=== PATIENT | female | born 1925 | race Caucasian/White ===

== ENCOUNTER → 2016-05-22 | Outpatient (CLI) | payer OTHER, BC | LOC: MMPC 11:11 | PROVIDERS: ATTEND Internal Medicine | DX: J01.40 Acute pansinusitis, unspecified (principal) | CPT/HCPCS: 99213; G0463 ==

== ENCOUNTER 2016-06-11 12:03 | Emergency (ER) | payer OTHER, BC ==
[2016-06-11] MEDS ORDERED: ONDANSETRON 4 MG/2 ML VIAL IVP ONE (12:32)
[2016-06-11] MEDS ORDERED: Sodium Chloride 0.9% 1,000 ML PRIMARY IV ONE (12:32)
--- NOTE | 2016-06-11 12:35 | PDOC ---
Gen Adult / Medical Screen HPI - General Chief Complaint: General Medical Stated Complaint: elevated BP Date Seen by Provider: 06/11/16 Time Seen by Provider: 12:29 Source: POSITIVE: Patient Exam Limitations: POSITIVE: No limitations Nurse's Notes Reviewed & Considered: Yes - Indicators Temperature Between 95 and 101 Degrees: Yes Respirations Between 12 and 20: Yes Blood Pressure Between 100-165 (sys) and 60-100 (sanches): No (167/91) Pulse Range Between 60-105 (100 for age > 60 years): Yes Severe Pain (Greater than 5/10 Reported): No Chest or Abdominal Pain: No Inability to Walk: No Pt Reports Active High Risk Cond. (TB/Hepatitis/HIV/Chemo): No Abnormal Mental Status: No - History of Present Illness Initial Comments: Patient brought in for evaluation for stroke. The patient was found by family member to be sitting on the kitchen floor holding onto a glass on the edge of the cabinet. She had distant gaze and was unresponsive initially. She stated that she was doing dishes and felt weak in her arms slid along the counter unable to support her weight. Because of this she sat down to avoid falling. She denies any vision changes, ringing in her ears, headache, nausea vomiting or diarrhea, no fever chills or sweats, no hematuria or dysuria, no rashes. Timing: REPORTS: Abrupt Duration: 1 hour Similar Symptoms Previously: Yes (CVA) Recent Care Received: REPORTS: Denies Any Prior Injuries Related to Current Complaint?: No - Patient Home Medications Home Medications: Home Medications Ibuprofen [Advil] 2 tab PO Q4-8H tab 03/27/15 Aspirin 1 tab PO QD tab 08/21/15 Amiodarone HCl 1 tab ORAL QD #30 tab 03/20/16 Levothyroxine Sodium 1 tab ORAL QD #30 tab 03/20/16 Lisinopril 1 tab PO BID #60 tab 03/20/16 - Patient Allergies Allergies/Adverse Reactions: Allergies Allergy/AdvReac Type Severity Reaction Status Date / Time No Known Allergies Allergy Verified 06/11/16 12:23 Past Medical History - heen HEENT History: Hard of Hearing, Other (please comment) Additional HEENT History: WEARS GLASSES, BILATERAL HEARING AIDES Cardiovascular History: Arrhythmia, Other (please comment) Additional Cardiovasular History: IRREGULAR HEART BEAT Respiratory History: Denies History Gastrointestinal History: Denies History Genitourinary History: Denies History Endocrine History: Hypothyroidism Musculoskeletal History: Other (please comment) Prosthesis or Implant: No Additional Musculoskeletal History: LEFT WRIST FRACTURE Neurological History: CVA Blood Disorders: Denies History Psychiatric History: Denies History History of Sexually Transmitted Diseases: No Cancer History: Denies History History of MDRO: No History of Other Communicable Diseases: No Alcohol Use: None Substance Use Type: None Previous Surgical History: Yes Type / Date of Surgery: APPENDECTOMY, FULL HYSTERECTOMY Anesthesia Reactions: No Malignant Hyperthermia: No Significant Family History: No pertinent family hx ROS - Limitations ROS Limitations: No Limitations Constitution: REPORTS: Denies Symptoms Cardiovascular: REPORTS: Denies Cardiac Symptoms Respiratory: REPORTS: Denies Resp Symptoms Neurological: REPORTS: Weakness Gastrointestinal: REPORTS: Denies GI Symptoms Endocrine: REPORTS: Denies Symptoms Musculoskeletal: REPORTS: Denies MS Symptoms Genitourinary: REPORTS: Denies Symptoms Eyes: REPORTS: Denies Symptoms ENT: REPORTS: Denies Symptoms Skin: REPORTS: Denies Skin Symptoms Lympathic: REPORTS: Denies Lympathic Symptoms Immunologic: POSITIVE: Denies Symptoms Psychiatric: POSITIVE: Denies Psych Symptoms Gen Adult/Medical Screen Exam - General Appearance General Appearance: POSITIVE: Alert, Cooperative, No Acute Distress, No Evidence of Trauma - HEENT HEENT: POSITIVE: Head Inspection Nml, Ears Inspection Nml, Nose Inspection Nml, Oral/Dental Inspect. Nml, Pharynx Inspect. Nml, PERRL, EOMI, Anisocoria - Pupils Pupil Size: 1 mm: Left (nonreactive), 4 mm: Bilateral (sluggishly reactive) - Neck Neck: POSITIVE: Normal Inspection, Thyroid Normal - Respiratory Respiratory: POSITIVE: No Respiratory Distress, Breath Sounds Normal, Chest Non- Tender - Cardiovascular Cardiovascular: POSITIVE: Regular Rate & Rhythm, No Murmur, No Gallop, PMI Normal Peripheral Pulses: Radial (R): 3+, Radial (L): 3+ - Abdomen Abdomen: Soft: (All Quadrants), Normal Bowel Sounds: (All Quadrants), Denies Tenderness: (All Quadrants) - Back Back: POSITIVE: Normal Inspection - Neurological / Psychological Mental Status: POSITIVE: Mood Normal, Affect Normal Orientation: POSITIVE: Oriented x 3 Reflexes: Patellar (R): 2+, Patellar (L): 2+, Radial (R): 3+, Radial (L): 3+ - Skin Skin: POSITIVE: Normal Color, Warm, Dry, No Rash - Extremities Extremity: Non-Tender: (All Extremities), Normal ROM: (All Extremities), Normal Inspection: (All Extremities) Procedures - Laceration/Wound Repair Did patient have a laceration repair: No Gen Adlt/Medical Scrn Progress - Results Reviewed by me Xrays/CTs/US Reviewed by me: Yes Discussed with Radiologist: Yes Lab Results Reviewed: Yes Lab Results:: Laboratory Results 06/11/16 Range/Units 12:48 WBC 4.27 L (4.8-10.8) 10^3/uL RBC 3.87 L (4.20-5.40) 10^6/uL Hgb 12.4 (12.0-16.0) g/dL Hct 38.6 (37.0-47.0) % MCV 99.7 H (81-99) FL MCH 32.0 H (27-31) PG MCHC 32.1 L (33-37) g/dL RDW Std Deviation 49.1 (39-50) fL RDW Coeff of [place] 13.8 (11.5-14.5) % Plt Count 158 (140-350) 10*3/uL MPV 9.9 (7.4-12.2) FL Immature Gran % (Auto) 0.5 (0-5) % Neut % (Auto) 66.1 (50-80) % Lymph % (Auto) 18.7 (10-50) % [place] % (Auto) 11.2 (5-15) % Eos % (Auto) 2.8 (0-8) % Baso % (Auto) 0.7 (0-1) % Immature Gran # (Auto) 0.02 10*3/UL Neut # (Auto) 2.82 10*3/UL Lymph # (Auto) 0.80 10*3/uL [place] # (Auto) 0.48 (0.3-0.8) 10*3/UL Eos # (Auto) 0.12 10*3/UL Baso # (Auto) 0.03 10*3/UL WBC Morphology Comment Normal morphology (NORM) Plt Morphology Comment Normal morphology (NORM) RBC Morph Comment Normal morphology (NORM) ESR Pending PT 10.7 (9.7-11.4) secs INR 1.04 (0.00-5.90) N/A Sodium 136 (135-145) meq/L Potassium 4.3 (3.8-5.2) meq/L Chloride 103 (98-112) meq/L Carbon Dioxide 28 (23-33) meq/L Anion Gap 5 (5-20) BUN 25 H (7-22) mg/dL Creatinine 1.1 (0.50-1.20) mg/dL Estimated GFR (>60 ml/min/1.73m(2)) BUN/Creatinine Ratio 22.72 H (6-20) Glucose 87 (78-110) mg/dL Calculated Osmolality 284.0 (267-292) mOsm/kg Calcium 8.6 L (8.7-10.7) mg/dL Magnesium 2.3 (1.6-2.4) mg/dL Total Bilirubin 0.6 (0.3-1.2) mg/dL AST 20 (8-39) IU/L ALT 32 (9-52) IU/L Alkaline Phosphatase 81 (38-126) IU/L C-Reactive Protein 0.6 (0.0-0.9) mg/dL Total Protein 5.6 L (6.1-8.0) g/dL Albumin 3.2 L (3.5-4.8) g/dL Globulin 2.4 L (2.50-4.10) g/dL Albumin/Globulin Ratio 1.30 (1.3-2.0) mg/g Ur Collection Type Clean catch urine Urine Color Yellow Urine Clarity Clear (CLEAR) Urine pH 7.0 (5.0-8.5) Ur Specific [place] 1.010 (1.005-1.030) Urine Protein Negative (NEG) mg/dl Urine Glucose (UA) Negative (NEG) mg/dL Urine Ketones Negative (NEG) Urine Occult Blood Negative (NEG) Urine Nitrate Negative (NEG) Urine Bilirubin Negative (NEG) Urine Urobilinogen 2.0 (0.2) EU/dL Ur Leukocyte Esterase Trace (NEG) Urine RBC 2-3 (NONE) /hpf Urine WBC 4-6 (NONE) Ur Squamous Epith Cells Few (NONE) Ur Renal Epithelial Cell None (NONE) Urine Crystals None Urine Bacteria Few (NONE) Urine Casts Few (NONE) Urine Mucus None (NONE) Urine Trichomonas None (NONE) Urine Yeast None (NONE) Ur Culture Indicated? Culture set EKG Interpretation:: POSITIVE: Normal Sinus Rhythm, Normal Rate - Patient's Progress Pain Medication Addressed: POSITIVE: Not Applicable Re-Examine Time: 14:08 Status: POSITIVE: Improved - Consult Counseled: POSITIVE: Patient, Family, RE: Lab Results, RE: Radiology Results, RE : DX, RE: Need for F/U Patient Care Time - Estimated PCT Patient Care Time (In Minutes): 45 Vital Signs - Recent Vital Signs Vital Signs: Vital Signs (Last 8 hours) Temp Pulse Pulse Resp BP Pulse Ox 06/11/16 12:52 54 L 06/11/16 12:28 97.8 F 62 18 167/91 97 - VS Reviewed Vital Signs Reviewed: Yes Discharge Clinical Impression: Urinary tract infection, Anisocoria Discharge Disposition: Discharged to Home Condition: Stable Patient Instructions Given at Discharge: Urinary Tract Infection in Women (ED)
--- NOTE | 2016-06-11 12:54 | EKG ---
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
[2016-06-11 13:19] LABS: BILIRUBIN,URINE NEGATIVE (NEG); CLARITY,URINE CLEAR (CLEAR); GLUCOSE, URINE (UA) NEGATIVE (NEG); LEUKOCYTE ESTERASE ,URINE TRACE (NEG); NITRATE,URINE NEGATIVE (NEG); OCCULT BLOOD,URINE NEGATIVE (NEG); PROTEIN,URINE NEGATIVE (NEG)
[2016-06-11 13:36] LABS: PROTHROMBIN TIME 10.7 secs (9.7-11.4)
[2016-06-11 13:38] LABS: BASOPHILS # (AUTO) 0.03 10*3/UL; BASOPHILS % (AUTO) 0.7 % (0-1); BILIRUBIN,TOTAL 0.6 mg/dL (0.3-1.2); BUN/CREATININE RATIO 22.72 (6-20); C-REACTIVE PROTEIN 0.6 mg/dL (0.0-0.9); CALCIUM 8.6 mg/dL (8.7-10.7); CREATININE 1.1 mg/dL (0.50-1.20); EOSINOPHILS % (AUTO) 2.8 % (0-8); HEMATOCRIT 38.6 % (37.0-47.0); HEMOGLOBIN 12.4 g/dL (12.0-16.0); IMM GRAN % (AUTO) 0.5 % (0-5); IMM GRAN# (AUTO) 0.02 10*3/UL; LYMPHOCYTES % (AUTO) 18.7 % (10-50); MAGNESIUM 2.3 mg/dL (1.6-2.4); MEAN CORPUSCULAR HGB CONC 32.1 g/dL (33-37); MEAN PLATELET VOLUME 9.9 FL (7.4-12.2); MONOCYTES # (AUTO) 0.48 10*3/UL (0.3-0.8); MONOCYTES % (AUTO) 11.2 % (5-15); NEUTROPHILS # (AUTO) 2.82 10*3/UL; NEUTROPHILS % (AUTO) 66.1 % (50-80); POTASSIUM 4.3 meq/L (3.8-5.2); RDW COEFFICIENT OF VARIATION 13.8 % (11.5-14.5); RED BLOOD COUNT 3.87 10^6/uL (4.20-5.40); TOTAL PROTEIN 5.6 g/dL (6.1-8.0); WHITE BLOOD COUNT 4.27 10^3/uL (4.8-10.8)
[2016-06-11 13:40] LABS: URINE SAMPLE TYPE CLEAN CATCH URINE
[2016-06-11 13:41] LABS: BACTERIA,URINE FEW; PLATELET MORPHOLOGY COMMENT NORMAL MORPHOLOGY (NORM); SQUAMOUS EPITHELIAL CELL,UR FEW
[2016-06-11 13:43] VITALS: RESP 18; TEMP 97.8
[2016-06-11] MEDS ORDERED: CEPHALEXIN 500 MG CAPSULE PO ONE (13:46)
--- NOTE | 2016-06-11 13:53 | DI ---
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 Previous Exam: 08/03/2015. Sequences: Sagittal T1; Axial JOHN T2 and FLAIR. Axial diffusion weighted images with ADC mapping were also performed. The fourth ventricle is of normal size, shape, position and contour. The third and lateral ventricles are moderately dilated but are otherwise normal. There is no evidence of an acute hemorrhagic or vi nd infarct. There are multiple punctate periventricular white matter hyperintensities bilaterally urmila t extend into the watershed territory, consistent with small vessel ischemic disease. This amount of ischemic disease is appropriate for the patient's age. There is also a focus of hyperintensity in the left cerebral peduncle that was present on the last examination as well. This probably represents so me ischemia in this location. Moderate cerebellar and moderately severe cerebral atrophy are present. There are no extracerebral mantels or shift of the midline structures. The paranasal sinuses are nor mal. Readin. There is no acute hemorrhagic or bland infarct. 2. There is extensive small vessel ischemic disease with probable small vessel ischemic disease also involving the left cerebral peduncle. This is unchanged from the previous exam. 3. Moderately severe cerebral atrophy and moderate cerebellar atrophy. 4. There has been no significant interval change.
[2016-06-11 14:46] LABS: ERYTHROCYTE SEDIMENTATION RATE 5 MM/HR (0-20)
== END 2016-06-11 14:22 | disposition home or self-care (01) ==
LOC: ER 12:03
DX: N39.0 Urinary tract infection, site not specified (principal); H57.02 Anisocoria; R53.1 Weakness
CPT/HCPCS: 36415; 70551; 80053; 81001; 81003; 83735; 85025; 85610; 85652; 86140; 87088; 93005; 93010; 96361; 96374; 99284; J2405; J7030

== ENCOUNTER → 2016-06-24 | Outpatient (CLI) | payer OTHER, BC | LOC: MOB LAB 11:01 | PROVIDERS: ATTEND Internal Medicine | DX: D75.89 Other specified diseases of blood and blood-forming organs (principal); R42 Dizziness and giddiness | CPT/HCPCS: 82607; 83921; 99214; G0463 ==

== ENCOUNTER → 2016-09-17 | Outpatient (CLI) | payer OTHER, BC ==
[2016-09-17 10:04] LABS: BUN/CREATININE RATIO 21.81 (6-20); CALCIUM 9.2 mg/dL (8.7-10.7)
== END ==
LOC: MOB LAB 09:15
PROVIDERS: ATTEND Internal Medicine
DX: M81.0 Age-related osteoporosis without current pathological fracture (principal)
CPT/HCPCS: 36415; 80048

== ENCOUNTER → 2016-09-20 | Outpatient (CLI) | payer OTHER, BC | LOC: MMPC 11:11 | PROVIDERS: ATTEND Internal Medicine | DX: M81.0 Age-related osteoporosis without current pathological fracture (principal) | CPT/HCPCS: G0463; J0897 ==

== ENCOUNTER → 2016-09-25 | Outpatient (CLI) | payer OTHER, BC | LOC: MMPC 11:11 | PROVIDERS: ATTEND Internal Medicine | DX: I10 Essential (primary) hypertension (principal); E03.9 Hypothyroidism, unspecified; M81.0 Age-related osteoporosis without current pathological fracture | CPT/HCPCS: 99213; G0463 ==

== ENCOUNTER 2016-12-06 16:54 | Emergency (ER) | payer OTHER, BC ==
[2016-12-06] MEDS ORDERED: Sodium Chloride 0.9% 1,000 ML ONE (17:03)
[2016-12-06] MEDS ORDERED: Sodium Chloride 0.9% 1,000 ML PRIMARY IV ONE (17:08)
--- NOTE | 2016-12-06 17:15 | PDOC ---
Altered Mental Status HPI - General Chief Complaint: Neurological Complaints Stated Complaint: cant formulate words Date Seen by Provider: 12/06/16 Time Seen by Provider: 17:11 Source: POSITIVE: Patient, Other (Daughters) Exam Limitations: POSITIVE: Clinical condition Nurse's Notes Reviewed & Considered: Yes - History of Present Illness Initial Comments: This is a very pleasant 89-year-old female who is mildly confused and having some difficulty expressing herself. Patient was normal last night, this morning her daughters found her to be slightly confused and having difficulty expressing herself. Presently she is alert and oriented to person place and time although she is unsure of what year she was born. She is able to tell me she is 89 years old. She denies any headache, sore throat, no chest pain or shortness of breath, no nausea vomiting or diarrhea, no abdominal pain, no hematuria or dysuria, no rashes, no myalgias or arthralgias. Timing: REPORTS: Unknown Duration: <24 hours Severity: Mild Character of AMS: REPORTS: Confused Context: REPORTS: Infection (Patient has had similar symptoms in the face of urinary tract infection in the recent past.) New Medications (if yes, list): No Patient Normals: REPORTS: Alert, Oriented x3 Similar Symptoms Previously: Yes Recent Care Received: REPORTS: Denies Any Prior Injuries Related to Current Complaint?: No - Patient Home Medications Home Medications: Home Medications Ibuprofen [Advil] 2 tab PO Q4-8H tab 03/27/15 Aspirin 1 tab PO QD tab 08/21/15 Levothyroxine Sodium 1 tab ORAL QD #30 tab 03/20/16 Lisinopril 1 tab PO BID #60 tab 03/20/16 - Patient Allergies Allergies/Adverse Reactions: Allergies Allergy/AdvReac Type Severity Reaction Status Date / Time No Known Allergies Allergy Verified 12/06/16 17:02 Past Medical History - heen HEENT History: Hard of Hearing, Other (please comment) Additional HEENT History: WEARS GLASSES, BILATERAL HEARING AIDES Cardiovascular History: Arrhythmia, Other (please comment) Additional Cardiovasular History: IRREGULAR HEART BEAT Respiratory History: Denies History Gastrointestinal History: Denies History Genitourinary History: Denies History Endocrine History: Hypothyroidism Musculoskeletal History: Other (please comment) Prosthesis or Implant: No Additional Musculoskeletal History: LEFT WRIST FRACTURE Neurological History: CVA Blood Disorders: Denies History Psychiatric History: Denies History History of Sexually Transmitted Diseases: No Cancer History: Denies History History of MDRO: No History of Other Communicable Diseases: No Alcohol Use: None Substance Use Type: None Previous Surgical History: Yes Type / Date of Surgery: APPENDECTOMY, FULL HYSTERECTOMY Anesthesia Reactions: No Malignant Hyperthermia: No Significant Family History: No pertinent family hx ROS - Limitations ROS Limitations: Mental Impairment (Very mild mental impairment with confusion about what year she was born. She is alert and oriented to person place and time at this time.) Constitution: REPORTS: Denies Symptoms Cardiovascular: REPORTS: Denies Cardiac Symptoms Respiratory: REPORTS: Denies Resp Symptoms Neurological: REPORTS: Confusion Gastrointestinal: REPORTS: Denies GI Symptoms Endocrine: REPORTS: Denies Symptoms Musculoskeletal: REPORTS: Denies MS Symptoms Genitourinary: REPORTS: Denies Symptoms Eyes: REPORTS: Denies Symptoms ENT: REPORTS: Denies Symptoms Skin: REPORTS: Denies Skin Symptoms Lympathic: REPORTS: Denies Lympathic Symptoms Immunologic: POSITIVE: Denies Symptoms Psychiatric: POSITIVE: Denies Psych Symptoms Altered Mental Physical Exam - General Appearance General Appearance: POSITIVE: Alert, Cooperative, No Acute Distress, No Evidence of Trauma - HEENT HEENT: POSITIVE: Head Inspection Nml, Eyes Inspection Nml, Ears Inspection Nml, Nose Inspection Nml, PERRL, EOMI, Dry Mucous Membranes - Pupil Size Pupil Size: 5 mm: Bilateral - Neuro/Psych Neurological: POSITIVE: Confusion Cranial Nerves: POSITIVE: Normal As Tested, No Evidence of Acute CVA Cerebellar: POSITIVE: Normal As Tested Peripheral Exam: POSITIVE: No Motor Deficits, No Sensory Deficits - Neck Neck: POSITIVE: Supple, Non Tender - Respiratory Respiratory: POSITIVE: No Respiratory Distress, Breath Sounds Normal - Cardiovascular CVS: POSITIVE: Regular Rate and Rhythm, Heart Sounds Normal - Abdomen Abdomen: Soft: (All Quadrants), Normal Bowel Sounds: (All Quadrants), Denies Tenderness: (All Quadrants), No Splenomegaly: (All Quadrants), No Hepatomegaly: (All Quadrants), No Guarding: (All Quadrants), No Rebound: (All Quadrants), No Palpable Pulse: (All Quadrants), No Palpabale Mass: (All Quadrants), No Distention: (All Quadrants), No Rigidity: (All Quadrants) - Skin Skin: POSITIVE: Normal for Race, No Rash, Warm, Dry - Extremities Extremity: Non-Tender: (All Extremities), Normal ROM: (All Extremities), Normal Inspection: (All Extremities), Pelvis Stable: (All Extremities) Altered Mental Status - Results Reviewed By Me Xrays/CTs/US Reviewed: Yes Discussed with Radiologist: Yes Lab Results Reviewed: Yes Lab Results:: Laboratory Results 12/06/16 12/06/16 Range/Units 17:15 18:00 WBC 5.24 (4.8-10.8) 10^3/uL RBC 4.53 (4.20-5.40) 10^6/uL Hgb 14.2 (12.0-16.0) g/dL Hct 43.5 (37.0-47.0) % MCV 96.0 (81-99) FL MCH 31.3 H (27-31) PG MCHC 32.6 L (33-37) g/dL RDW Std Deviation 46.6 (39-50) fL RDW Coeff of [place] 13.5 (11.5-14.5) % Plt Count 115 L (140-350) 10*3/uL MPV 10.2 (7.4-12.2) FL Immature Gran % (Auto) 0.2 (0-5) % Neut % (Auto) 56.2 (50-80) % Lymph % (Auto) 32.3 (10-50) % [place] % (Auto) 9.0 (5-15) % Eos % (Auto) 1.7 (0-8) % Baso % (Auto) 0.6 (0-1) % Immature Gran # (Auto) 0.01 10*3/UL Neut # (Auto) 2.95 10*3/UL Lymph # (Auto) 1.69 10*3/uL [place] # (Auto) 0.47 (0.3-0.8) 10*3/UL Eos # (Auto) 0.09 10*3/UL Baso # (Auto) 0.03 10*3/UL WBC Morphology Comment Normal morphology (NORM) Plt Morphology Comment Normal morphology (NORM) RBC Morph Comment Normal morphology (NORM) Sodium 140 (135-145) meq/L Potassium 4.0 (3.8-5.2) meq/L Chloride 109 (98-112) meq/L Carbon Dioxide 23 (23-33) meq/L Anion Gap 8 (5-20) BUN 21 (7-22) mg/dL Creatinine 0.9 (0.50-1.20) mg/dL Estimated GFR (>60 ml/min/1.73m(2)) BUN/Creatinine Ratio 23.33 H (6-20) Glucose 97 (78-110) mg/dL Calculated Osmolality 292.0 (267-292) mOsm/kg Calcium 9.0 (8.7-10.7) mg/dL Magnesium 2.3 (1.6-2.4) mg/dL Total Bilirubin 0.6 (0.3-1.2) mg/dL AST 32 (8-39) IU/L ALT 32 (9-52) IU/L Alkaline Phosphatase 71 (38-126) IU/L Total Protein 6.1 (6.1-8.0) g/dL Albumin 3.7 (3.5-4.8) g/dL Globulin 2.4 L (2.50-4.10) g/dL Albumin/Globulin Ratio 1.50 (1.3-2.0) mg/g Ur Collection Type Cath specimen Urine Color Yellow Urine Clarity Clear (CLEAR) Urine pH 6.5 (5.0-8.5) Ur Specific [place] 1.015 (1.005-1.030) Urine Protein Negative (NEG) mg/dl Urine Glucose (UA) Negative (NEG) mg/dL Urine Ketones Negative (NEG) Urine Occult Blood Trace-intact H (NEG) Urine Nitrate Negative (NEG) Urine Bilirubin Negative (NEG) Urine Urobilinogen 1.0 (0.2) EU/dL Ur Leukocyte Esterase Trace (NEG) Urine RBC 0-1 (NONE) /hpf Urine WBC 1-3 (NONE) Ur Squamous Epith Cells Moderate (NONE) Ur Renal Epithelial Cell None (NONE) Urine Crystals Few Urine Bacteria Rare (NONE) Urine Casts None (NONE) Urine Mucus Few (NONE) Urine Trichomonas None (NONE) Urine Yeast None (NONE) Ur Culture Indicated? Culture not set - Patient's Progress Re-Examine Time:: 19:39 Status: POSITIVE: Improved MDM / ED Course: Patient was evaluated, an IV started, blood drawn and sent to the lab for studies, urinalysis obtained, radiographic examinations were obtained. Findings: CBC shows normal white count with concentration of hemoglobin and hematocrit. Comprehensive metabolic panel shows elevation of BUN/creatinine ratio. CT scan of her head shows no acute intracranial abnormalities. assessment: #1 dehydration #2 confusion most likely related to #1. Plan: Discharge home, increase hydration, follow-up with primary care physician. Return to the emergency department if increasing signs or symptoms, lateralizing signs, or other neurological problems. Antibiotics Given: No - Consult Counseled: POSITIVE: Patient, Family, RE: Lab Results, RE: Radiology Results, RE : DX, RE: Need for F/U Patient Care Time - Estimated PCT Patient Care Time (In Minutes): 30 Vital Signs - Recent Vital Signs Vital Signs: Vital Signs (Last 8 hours) Temp Pulse Resp BP Pulse Ox 12/06/16 16:55 97.9 F 119 H 20 148/119 94 - VS Reviewed Vital Signs Reviewed: Yes Discharge Clinical Impression: Dehydration, Confusion Discharge Disposition: Discharged to Home Condition: Stable Patient Instructions Given at Discharge: Dehydration (ED), Altered Mental Status (ED)
[2016-12-06 17:31] LABS: HEMATOCRIT 43.5 % (37.0-47.0); HEMOGLOBIN 14.2 g/dL (12.0-16.0); RED BLOOD COUNT 4.53 10^6/uL (4.20-5.40)
[2016-12-06 17:32] LABS: EOSINOPHILS % (AUTO) 1.7 % (0-8); MEAN CORPUSCULAR HEMOGLOBIN 31.3 PG (27-31); MEAN CORPUSCULAR HGB CONC 32.6 g/dL (33-37); MEAN PLATELET VOLUME 10.2 FL (7.4-12.2); NEUTROPHILS % (AUTO) 56.2 % (50-80)
[2016-12-06 17:33] LABS: BUN/CREATININE RATIO 23.33 (6-20); MAGNESIUM 2.3 mg/dL (1.6-2.4); SERUM ALBUMIN 3.7 g/dL (3.5-4.8)
[2016-12-06 17:35] LABS: BASOPHILS % (AUTO) 0.6 % (0-1); NEUTROPHILS # (AUTO) 2.95 10*3/UL
[2016-12-06 17:36] LABS: BASOPHILS # (AUTO) 0.03 10*3/UL; EOSINOPHILS # (AUTO) 0.09 10*3/UL; LYMPHOCYTES # (AUTO) 1.69 10*3/uL; MONOCYTES # (AUTO) 0.47 10*3/UL (0.3-0.8); PLATELET MORPHOLOGY COMMENT NORMAL MORPHOLOGY (NORM); RBC MORPHOLOGY COMMENT NORMAL MORPHOLOGY (NORM); WBC MORPHOLOGY COMMENT NORMAL MORPHOLOGY (NORM)
[2016-12-06 18:12] LABS: BILIRUBIN,URINE NEGATIVE (NEG); CLARITY,URINE CLEAR (CLEAR); COLOR,URINE YELLOW; GLUCOSE, URINE (UA) NEGATIVE (NEG); NITRATE,URINE NEGATIVE (NEG); OCCULT BLOOD,URINE Trace-intact (NEG); PH,URINE 6.5 (5.0-8.5); PROTEIN,URINE NEGATIVE (NEG)
[2016-12-06 18:23] LABS: BACTERIA,URINE RARE; RBC,URINE 0-1 /hpf; SQUAMOUS EPITHELIAL CELL,UR MODERATE; URINE CRYSTALS FEW; URINE SAMPLE TYPE CATH SPECIMEN
[2016-12-06 19:01] VITALS: RESP 20; TEMP 97.9
--- NOTE | 2016-12-10 06:31 | DI ---
CT HEAD W/O CONTRAST,12/06/2016 6:33 PM: Clinical History: Altered mental status. Previous Exam: August 02, 2015 Findings: Multiple helically acquired CT images are obtained through the brain without contrast, and demonstrat e mild diffuse age-related volume loss. There is no mass, hemorrhage or midline shift. The surroundin g soft tissue and osseous structures are unremarkable. Impression: Normal CT head.
== END 2016-12-06 19:49 | disposition home or self-care (01) ==
LOC: ER 16:54
DX: E86.0 Dehydration (principal); R41.0 Disorientation, unspecified
CPT/HCPCS: 70450; 80053; 81001; 81003; 83735; 85025; 96360; 96361; 99283; J7030